=== PATIENT | female | born 1980 | race Caucasian/White ===

== ENCOUNTER → 2021-02-13 09:58 | Outpatient (CLI) | payer OTHER, SELFPAY ==
[2021-02-13 10:15] LABS: Add Manual Diff / Slide Review NO; Basophils Absolute Auto 0 /uL (0-100); Basophils Percent Auto 0.8 % (0-2); Eosinophils Absolute Auto 0 /uL (0-450); Eosinophils Percent Auto 0.8 % (2-4); Hematocrit 37.5 % (36-46); Hemoglobin 12.9 g/dL (12.0-16.0); Lymphocytes Absolute Auto 1800 /uL (1100-4500); Lymphocytes Percent Auto 41.7 % (25-40); Mean Corpuscular HGB Conc 34.3 % (30-36); Mean Corpuscular Hemoglobin 29.8 PG (26-34); Mean Corpuscular Volume 86.9 fL (80-100); Monocytes Absolute Auto 300 /uL (0-900); Monocytes Percent Auto 6.9 % (3-14); Neutrophils Absolute Auto 2100 /uL (1500-7000); Neutrophils Percent Auto 49.8 % (50-75); Platelet Count 250 X10^3/uL (150-400); Red Blood Cell Count 4.32 X10^6/uL (4.0-5.2); Red Cell Distribution Width 14.3 % (11.6-14.8); White Blood Cell Count 4.3 X10^3/uL (4.5-11.0)
[2021-02-13 10:45] LABS: Alanine Aminotransferase 19 IU/L (<35); Albumin 4.2 g/dL (3.5-5.0); Albumin Globulin Ratio 1.4 (1.0-2.8); Alkaline Phosphatase 69 U/L (38-126); Aspartate Aminotransferase 26 IU/L (14-36); BUN Creatinine Ratio 18.8 (6-22); Bilirubin Total 0.3 mg/dL (0.2-1.3); Blood Urea Nitrogen 12 mg/dL (7-17); Calcium 9.3 mg/dL (8.4-10.2); Carbon Dioxide 26 mmol/L (22-32); Chloride 103 mmol/L (98-107); Cholesterol 228 mg/dL (140-199); Estimated Glomerular Filt Rate > 60.0 mL/min (>60); Glucose 92 mg/dL (70-100); HDL Cholesterol 53 mg/dL (40-60); HEMOLYSIS < 15 (0-50); LDL Cholesterol Calculated 141 mg/dL (<100); Potassium 4.4 mmol/L (3.4-5.1); Sodium 135 mmol/L (137-145); Total Protein 7.2 g/dL (6.3-8.2); Triglycerides 171 mg/dL (35-150)
== END ==
PROVIDERS: PCP Family Medicine; Referring Provider Family Medicine; Visit Provider Family Medicine
DX: E66.3 Overweight (principal); E78.5 Hyperlipidemia, unspecified
CPT/HCPCS: 36415; 80053; 80061; 85025

== ENCOUNTER 2021-02-16 10:48 | Emergency (ER) | payer OTHER, SELFPAY ==
[2021-02-16 10:58] VITALS: BP 134/80; PULSE 73; RESP 16; TEMP 36.6; O2SAT 100; BMI 28.3
--- NOTE | 2021-02-16 11:09 | ED_ITS ---
HPI - Female Genitourinary General Chief complaint: Urogenital-Female Stated complaint: vaginal bleeding 18day/ pain today Time Seen by Provider: 02/16/21 11:09 Source: patient Mode of arrival: Ambulatory Limitations: no limitations History of Present Illness HPI Narrative: The patient is a 40-year-old female with history of ovarian cyst in ongoing vaginal bleeding presenting today with sudden onset of pelvic pain. She states that she has had vaginal bleeding for the about the last 18 days not any worse today. However today she suddenly had a sharp shooting pain suprapubic area lasted for about 20 minutes so intense that she felt like she might pass out but she did not. She denies any nausea she has not taken anything for pain the pain has sort of subsided is at this time. She denies any fever or painful or frequent urination. MD Complaint: pelvic pain Related Data Previous Rx's Medication Instructions Recorded medroxyprogesterone 10 mg PO DAILY #90 tab 02/16/21 Allergies Allergy/AdvReac Type Severity Reaction Status Date / Time No Known Drug Allergies Allergy Unverified 02/16/21 10:50 Review of Systems Review of Systems ROS Unobtainable: All systems reviewed & are unremarkable except as noted in HPI and below Constitutional Constitutional: Denies chills, Denies fever(s), Denies lethargy and Denies weakness ENT Ears, Nose, Mouth, and Throat: Denies change in voice, Denies neck pain and Denies sore throat Cardiovascular Cardiovascular: Denies chest pain, Denies irregular heart rhythm, Denies l ightheadedness, Denies palpitations, Denies dyspnea, Denies dyspnea on exertion and Denies orthopnea Respiratory Respiratory: Denies cough, Denies dyspnea, Denies dyspnea on exertion and Denies wheezing Gastrointestinal Gastrointestinal: Denies abdominal pain, Denies change in bowel habits, Denies diarrhea, Denies nausea and Denies vomiting Genitourinary Genitourinary: Reports as per HPI and Denies dysuria Genitourinary: Reports as per HPI, Reports menorrhagia and Denies dysuria Musculoskeletal Musculoskeletal: Denies back pain, Denies myalgias and Denies neck pain Integumentary/Breasts Skin/Breast: Denies pruritus, Denies erythema, Denies rash and Denies wounds Neurologic Neurologic: Denies weakness Endocrine Endocrine: Denies palpitations Allergic/Immunologic Allergic/Immunologic: Denies wheezing Patient History Medical History Hyperlipidemia Family History Father Diabetes mellitus Coronary artery disease involving [place] heart, angina presence unspecified, unspecified vessel or lesion type Bipolar disorder, unspecified Hypertension Hyperlipidemia Mother Age: 72 No problems noted. Sister Age: 48 No problems noted. Sister Age: 36 No problems noted. Brother Age: 33 No problems noted. Substance Use Type: does not use Exam Initial Vital Signs Initial Vital Signs: Vital Signs Temperature 97.9 F 02/16/21 10:58 Pulse Rate 73 02/16/21 10:58 Respiratory Rate 16 02/16/21 10:58 Blood Pressure 134/80 02/16/21 10:58 Pulse Oximetry 100 02/16/21 10:58 GENERAL: Well-appearing, well-nourished and in no acute distress. HEENT: Head atraumatic,EOMI, pupils reactive, face symmetric, moist mucous membranes CARDIOVASCULAR: Regular rate and rhythm without murmurs, rubs or gallops. RESPIRATORY: Breath sounds equal bilaterally, no wheezes rales or rhonchi. ABDOMEN: Soft, mild suprapubic pain no guarding or rebound EXTREMITIES: Normal range of motion, no clubbing or edema. Neurovascularly intact NEUROLOGICAL: Alert and oriented x4.Normal gait and speech. Cranial nerves II through XII grossly intact. SKIN: Warm, dry, no laceration, no petechiae, no rashes or lesions. Course Orders Ordered: ED Orders 02/16/21 11:15 US pelvic complete Stat 02/16/21 11:25 Complete Blood Count AUTO DIFF Stat Comprehensive Metabolic Panel Stat Vital Signs Vital signs: Vital Signs - 8 hr 02/16/21 10:58 02/16/21 13:03 Temperature 97.9 F Pulse Rate 73 78 Respiratory Rate 16 16 Blood Pressure 134/80 126/70 Pulse Oximetry 100 99 MDM - Female Genitourinary Lab Data Attestation: I reviewed the patient's lab results. Result diagrams: 02/16/21 11:25 02/16/21 11:25 Labs: Lab Results 02/16/21 02/16/21 Range/Units 11:25 11:25 WBC 6.8 (4.5-11.0) X10^3/uL RBC 4.23 (4.0-5.2) X10^6/uL Hgb 12.7 (12.0-16.0) g/dL Hct 36.9 (36-46) % MCV 87.2 (80-100) fL MCH 30.0 (26-34) PG MCHC 34.4 (30-36) % RDW 14.0 (11.6-14.8) % Plt Count 265 (150-400) X10^3/uL Neut % (Auto) 70.7 (50-75) % Lymph % (Auto) 21.6 L (25-40) % Love % (Auto) 6.3 (3-14) % Eos % (Auto) 0.7 L (2-4) % Baso % (Auto) 0.7 (0-2) % Neut # (Auto) 4800 (1883-5442) /uL Lymph # (Auto) 1500 (1308-9213) /uL Love # (Auto) 400 (0-900) /uL Eos # (Auto) 0 (0-450) /uL Baso # (Auto) 0 (0-100) /uL Sodium 137 (137-145) mmol/L Potassium 4.2 (3.4-5.1) mmol/L Chloride 103 (98-107) mmol/L Carbon Dioxide 26 (22-32) mmol/L BUN 16 (7-17) mg/dL Creatinine 0.63 (0.52-1.04) mg/dL Estimated GFR > 60.0 (>60) mL/min BUN/Creatinine Ratio 25.4 H (6-22) Glucose 94 (70-100) mg/dL Calcium 9.7 (8.4-10.2) mg/dL Total Bilirubin 0.4 (0.2-1.3) mg/dL AST 25 (14-36) IU/L ALT 20 (<35) IU/L Alkaline Phosphatase 69 (38-126) U/L Total Protein 7.4 (6.3-8.2) g/dL Albumin 4.4 (3.5-5.0) g/dL Globulin 3.0 (1.7-4.1) g/dL Albumin/Globulin Ratio 1.5 (1.0-2.8) Point of Care Testing Test Results Negative Urine Dip Bedside Urine Glucose Negative Bedside Urine Bilirubin - Negative Bedside Urine Ketone - Negative Urine Specific Ransom 1.015 Bedside Urine Occult Blood +++ Bedside Urine pH 6.5 Bedside Urine Protein - Negative Bedside Urine Urobilinogen - Negative Bedside Urine Nitrite - Negative Bedside Urine Leukocytes - Negative Esterase Imaging Data [place] - CORPORATE LEGAL SECRETARY: Radiologist's Impression: PROCEDURE: US PELVIC COMPLETE INDICATIONS: SEVERE PAIN TECHNIQUE: Real-time scanning was performed of the pelvic organs, with image documentation. Additional endovaginal scanning was necessary due to incomplete visualization of the adnexal and endometrial structures by transabdominal scanning. COMPARISON: None. FINDINGS: Uterus: Uterus is anteverted and normal in size at 5.3 x 5.6 x 9.8 cm. The endometrium measures 11 mm in combined thickness. Ovaries: The ovaries bilaterally appear normal and include a 2.9 cm maximal dimension simple cyst on the right and 1.8 cm maximal dimension simple cyst on the left Other: No pathologic free abdominal or pelvic fluid. IMPRESSION: No evidence of ovarian torsion. Source of current pelvic pain is not seen. Dictated by: César Parker M.D. on 02/16/2021 at 12:32 MDM Narrative Medical decision making narrative: At this time patient is hemodynamically stable minimal suprapubic pain no specific right lower quadrant pain or left lower quadrant pain. Ultrasound is negative. She is requesting some he does slow down vaginal bleeding since it has been ongoing for the past 18 days. I have given her prescription for Provera. She has not needed anything for pain here. Unclear etiology of sudden onset of pain. She has no flank pain do not suspect kidney stone low suspicion for appendicitis, pain is centrally located do not suspect ovarian torsion ultrasound is normal and does not show ovarian abscess. She has no fever or leukocytosis to suggest infection. Discharge Plan Departure Patient Disposition: Home Clinical Impression: Vaginal bleeding Instructions: DI for Vaginal Bleeding Activity Restrictions/Additional Instructions: *You have been diagnosed with vaginal bleeding *What to do: At this time no real explanation for your pain. Ultrasound and b lood work overall reassuring. *Continue to take medications as directed Provera, start taking 2 tablets every 4 hours for 48 hours, then take 2 tablets every 8 hours for 48 hours and take 2 tablets every 8 hours for 48 hours and take 2 tablets every 12 hours for 48 hours and take 2 tablets once a day for 7 days *Follow up with your primary care provider in 2-3 days *Return to ER if you should have increasing vaginal bleeding more than 2 tampons an hour, dizziness, lightheadedness, increasing pain, fever or any new, worsening or concerning symptoms Prescriptions: New medroxyprogesterone 10 mg tablet 10 mg PO DAILY Qty: 90 RF: 0 Referrals: Nivia Leos DO [Primary Care Provider] -
--- NOTE | 2021-02-16 11:15 | DI.US.S_ITS ---
PROCEDURE: US PELVIC COMPLETE INDICATIONS: SEVERE PAIN TECHNIQUE: Real-time scanning was performed of the pelvic organs, with image documentation. Additional endovaginal scanning was necessary due to incomplete visualization of the adnexal and endometrial structures by transabdominal scanning. COMPARISON: None. FINDINGS: Uterus: Uterus is anteverted and normal in size at 5.3 x 5.6 x 9.8 cm. The endometrium measures 11 mm in combined thickness. Ovaries: The ovaries bilaterally appear normal and include a 2.9 cm maximal dimension simple cyst on the right and 1.8 cm maximal dimension simple cyst on the left Other: No pathologic free abdominal or pelvic fluid. IMPRESSION: No evidence of ovarian torsion. Source of current pelvic pain is not seen. Dictated by: César Parker M.D. on 02/16/2021 at 12:32 Approved by: César Parker M.D. on 02/16/2021 at 12:34
[2021-02-16 11:34] LABS: Add Manual Diff / Slide Review NO; Basophils Absolute Auto 0 /uL (0-100); Basophils Percent Auto 0.7 % (0-2); Eosinophils Absolute Auto 0 /uL (0-450); Eosinophils Percent Auto 0.7 % (2-4); Hematocrit 36.9 % (36-46); Hemoglobin 12.7 g/dL (12.0-16.0); Lymphocytes Absolute Auto 1500 /uL (1100-4500); Lymphocytes Percent Auto 21.6 % (25-40); Mean Corpuscular HGB Conc 34.4 % (30-36); Mean Corpuscular Volume 87.2 fL (80-100); Monocytes Absolute Auto 400 /uL (0-900); Monocytes Percent Auto 6.3 % (3-14); Neutrophils Absolute Auto 4800 /uL (1500-7000); Neutrophils Percent Auto 70.7 % (50-75); Platelet Count 265 X10^3/uL (150-400); Red Blood Cell Count 4.23 X10^6/uL (4.0-5.2); White Blood Cell Count 6.8 X10^3/uL (4.5-11.0)
[2021-02-16 11:44] LABS: Alanine Aminotransferase 20 IU/L (<35); Albumin 4.4 g/dL (3.5-5.0); Albumin Globulin Ratio 1.5 (1.0-2.8); Alkaline Phosphatase 69 U/L (38-126); Aspartate Aminotransferase 25 IU/L (14-36); BUN Creatinine Ratio 25.4 (6-22); Bilirubin Total 0.4 mg/dL (0.2-1.3); Blood Urea Nitrogen 16 mg/dL (7-17); Calcium 9.7 mg/dL (8.4-10.2); Carbon Dioxide 26 mmol/L (22-32); Chloride 103 mmol/L (98-107); Estimated Glomerular Filt Rate > 60.0 mL/min (>60); Glucose 94 mg/dL (70-100); HEMOLYSIS < 15 (0-50); Potassium 4.2 mmol/L (3.4-5.1); Sodium 137 mmol/L (137-145); Total Protein 7.4 g/dL (6.3-8.2)
[2021-02-16 13:03] VITALS: BP 126/70; PULSE 78; RESP 16; O2SAT 99
== END 2021-02-16 13:04 | disposition home or self-care (01) ==
PROVIDERS: Emergency Provider Emergency Medicine; PCP Family Medicine
DX: N93.9 Abnormal uterine and vaginal bleeding, unspecified (principal)
CPT/HCPCS: 36415; 76830; 76856; 80053; 81003; 81025; 85025; 99284

== ENCOUNTER → 2021-06-19 11:18 | Outpatient (CLI) | payer OTHER, SELFPAY ==
[2021-06-19 13:16] LABS: HCG Quantitative /Beta subunit < 2.4 mIU/mL
== END ==
PROVIDERS: PCP Family Medicine; Referring Provider Obstetrics & Gynecology; Visit Provider Obstetrics & Gynecology
DX: N91.2 Amenorrhea, unspecified (principal)
CPT/HCPCS: 36415; 84702

== ENCOUNTER → 2023-06-17 16:47 | Outpatient (CLI) | payer OTHER, SELFPAY | PROVIDERS: PCP Family Medicine; Visit Provider Family Medicine | DX: N89.8 Other specified noninflammatory disorders of vagina (principal) | CPT/HCPCS: 87210 ==